=== PATIENT | female | born 1995 | race Caucasian/White ===

== ENCOUNTER 2020-01-29 09:09 | Emergency (ER) | payer OTHER ==
[~2020-01-29] VITALS: Ht 152.4 cm; Wt 104.3 kg
[2020-01-29 09:18] VITALS: Ht 152.4 cm; Wt 104.3 kg
[2020-01-29 10:54] LABS: BASOPHIL % 1.4 % (0-2); PLATELET COUNT 304 x10^3mcL (130-400)
[2020-01-29 11:00] VITALS: BP 146/82
[2020-01-29 11:00] LABS: RED CELL DISTRIBUTION WIDTH 14.9 % (11.5-14.5)
== END 2020-01-29 12:02 | disposition home or self-care (01) ==
LOC: ED 09:09
PROVIDERS: Emergency Medicine
DX: O20.8 Other hemorrhage in early pregnancy (principal); Z3A.01 Less than 8 weeks gestation of pregnancy; Z87.19 Personal history of other diseases of the digestive system